=== PATIENT | male | born 1965 | race Caucasian/White ===

== ENCOUNTER 2017-07-30 17:59 | Inpatient (IN) | payer MEDICARE, MEDICAID ==
[2017-07-30 19:10] LABS: Hematocrit 47.1 % (42.0-52.0); Mean Platelet Volume 7.9 fL (7.4-10.4); Red Blood Cell (RBC) Count 4.58 mill/uL (4.70-6.10); White Blood Cell (WBC) Count 19.8 thou/uL (4.8-10.8)
[2017-07-30 19:25] LABS: Band 1 % (5-11); Macrocytosis SLIGHT = 6-15 cells (100X) (0-5/hpf); Neutrophil 44 % (42-75); Reactive Lymphocytes 3 % (0-10)
[2017-07-30 19:27] LABS: ALT (SGPT) 124 U/L (8-55); AST (SGOT) 249 U/L (5-34); Alkaline Phosphatase 107 U/L (40-150); Anion Gap 13 mmol/L (10-20); BUN (Urea Nitrogen) 13 mg/dL (8.4-25.7); Bilirubin, Total 1.1 mg/dL (0.2-1.2); Calc. Creatinine Clearance 0 mL/min (70-130); Calcium 9.5 mg/dL (7.8-10.44); Carbon Dioxide 23 mmol/L (22-29); Chloride 98 mmol/L (98-107); Estimated GFR-MDRD 73; Globulin 3.6 g/dL (2.4-3.5); Protein, Total 7.5 g/dL (6.0-8.3)
[2017-07-30 19:32] LABS: Lactic Acid - Sepsis 2.4 mmol/L (0.5-2.2)
[2017-07-30 19:32] LABS: Troponin I Less than 0.010 ng/mL (< 0.028)
[2017-07-30 19:48] LABS: Bilirubin Small (Negative); Blood, Urine Large (Negative); Glucose, Urine (Dipstick) Negative (Negative); Ketone, Urine Trace mg/dL (Negative); Nitrite Negative (Negative); Protein, Urine (Dipstick) 100 mg/dL (Neg-Trace)
[2017-07-30 19:52] LABS: Bacteria/HPF None Seen HPF (None Seen); RBC/HPF 0-3 HPF (0-3); Squamous Epithelial 0-3 HPF (0-3)
[2017-07-30 20:05] LABS: Yeast-All Forms None Seen HPF (None Seen)
[2017-07-30] MEDS ORDERED: Vancomycin HCl 1.75 GM in Sodium Chloride 0.9% 500 ML IVPB SCH (20:30)
--- NOTE | 2017-07-30 21:40 | CT ---
ABDOMEN CT WITHOUT CONTRAST: PELVIS CT WITHOUT CONTRAST: HISTORY: Urinary retention. The patient has not urinated all day. The patient has had over 2 L of fluid. Ba ck pain. The patient has only one kidney. The patient has epilepsy. COMPARISON: None. TECHNIQUE: An abdomen and pelvis CT is performed without contrast. Coronal reformatted images are submitted for interpretation. FINDINGS: ABDOMEN: Small right-sided and left-sided pleural effusion. Adjacent atelectasis is noted. Heart s ize is within normal limits. No significant pericardial fluid. The visualized aorta has a normal ca liber. No periaortic fat stranding. Symmetric attenuation of the psoas muscles. Multiple surgical clips in the right upper quadrant. The gallbladder appears to be surgically absent . Limited evaluation of the solid organs due to lack of IV contrast. The left hepatic lobe is somewhat prominent. Discrete hepatic masses are not appreciated. Calcifications project over the right hepa tic lobe. The spleen appears to be surgically absent. There appears to be splenule in the left upper quadrant, measuring approximately 2 cm. 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 The right adrenal gland is unremarkable. Atrophy of the proximal body and head of the pancreas. No inflammation. No mesenteric mass, lymphadenopathy, free air, or free fluid. Limited evaluation of the alimentary canal due to lack of oral contrast. No evidence of bowel obstru ction. The right kidney is absent. With regard to the left kidney, there is no evidence of hydronephrosis o r perinephric fat stranding. Punctate nonobstructing calculus in the left renal pelvis. The left ur eter has a normal caliber. No hydroureter, periureteral fat stranding, or ureterolithiasis. PELVIS: A Mohan catheter decompresses the urinary bladder. No pelvic mass, lymphadenopathy, free ai r, or free fluid. There is an anastomotic suture chain at the level of the rectum. There are no osteoblastic or osteolytic lesions. IMPRESSION: 1. No evidence or urinary obstruction. 2. Additional post surgical changes as detailed above. POS: [facility]
--- NOTE | 2017-07-30 21:47 | RAD ---
ONE VIEW CHEST: HISTORY: Pain. COMPARISON: None. FINDINGS: Normal cardiac silhouette. The lungs and pleural spaces are clear. No pneumothorax. No osseous abn ormalities. Left-sided vagal stimulator is identified. IMPRESSION: No acute cardiopulmonary process. POS: [facility]
--- NOTE | 2017-07-30 22:00 | CT ---
NONCONTRAST HEAD CT: HISTORY: Altered mental status. COMPARISON: None. TECHNIQUE: A noncontrast head CT is performed from the skull base to the skull vertex. FINDINGS: No parenchymal hemorrhage. No extraaxial hematoma. No midline shift. The basilar cisterns are kelly nt. Cortical lawson white matter differentiation is preserved. The ventricles and sulci are patent an d symmetric. Hypodensities in the left and right frontal deep and subcortical white matter, due to chronic small v essel ischemic change or remote white matter insult, are suspected. Of note, there is slightly great er atrophy of the frontal lobes when compared to the remainder of the cerebrum. Minimal opacification of the left sphenoid sinus. Adequate aeration of the mastoid air cells. The c alvarium is intact. IMPRESSION: 1. Asymmetric increased atrophy of the left and right frontal lobe. Remote white matter insult in b oth frontal lobes. 2. No acute intracranial process. POS: [facility]
--- NOTE | 2017-07-30 22:04 | PDOC.EVN ---
Event Note - Event Note Event Note: [id number] H&P Dictated 1. Schizophrenia 2. Altered mental status 3. Seizures 4. HTN plan; see orders
[2017-07-30] MEDS ORDERED: Acetaminophen 325 MG TAB PO PRN ×2 (22:05→23:34)
[2017-07-30] MEDS ORDERED: HYDROcodone/Acetaminophen 5/325 mg Tablet PO PRN ×2 (22:05→23:36)
[2017-07-30] MEDS ORDERED: Ondansetron HCl/PF 4 MG/2 ML Vial IVP PRN (22:05)
[2017-07-30 22:55] LABS: Troponin I Less than 0.010 ng/mL (< 0.028)
[2017-07-31 01:09] VITALS: BMI 34.2
[2017-07-31 01:42] LABS: Troponin I 0.012 ng/mL (< 0.028)
[2017-07-31] MEDS: Sodium Chloride 0.9% 1,000 ML IV SCH ×4 (02:03→23:25)
--- NOTE | 2017-07-31 04:42 | HP ---
DATE OF ADMISSION: 07/30/2017 CHIEF COMPLAINT: Fever, fatigue, and confusion. HISTORY OF PRESENT ILLNESS: Patient is a 51-year-old male with past medical history of seizures, dep ression, anxiety, schizophrenia, hypertension. He currently lives in a fdc. Patient was brou ght from the fdc because of fever, fatigue, confusion, and decreased urine output since this m orning. According to the caregiver, the patient was slightly confused since this morning and is havi ng some fever and patient did not have any urine output since this morning, so patient was brought to the ER. The patient complains of generalized body aches. Denies any cough, denies sputum productio n, denies any chest pain, denies any palpations, denies any dizziness. He complains of feeling tired . PAST MEDICAL HISTORY: As per HPI. PAST SURGICAL HISTORY: Splenectomy and nephrectomy. SOCIAL HISTORY: Denies smoking, denies alcohol, denies any drugs. ALLERGIES: Reviewed. FAMILY HISTORY: Patient lives in a fdc, has foster parents. REVIEW OF SYSTEMS: Constitutional: Positive for fever, positive for fatigue. Eyes: Denies any vis ion problems. Neck: Denies any neck pain. Cardiovascular: Denies any chest pain. Respiratory sys tem: Denies any cough, denies sputum production. Gastrointestinal: Denies abdominal pain. Genitou rinary: Decreased urine output. Patient had some urine output after Mohan placement in the ER. Mus culoskeletal: Denies any joint deformities. Cranial nerve system: Denies syncope, history of seizu res. Psychiatric: Positive for confusion. All other review of systems are reviewed and are negativ e. PHYSICAL EXAMINATION: VITAL SIGNS: At the time of H and P performed, blood pressure is 114/67, pulse ox 94%, heart rate 90 . GENERAL: The patient appears comfortable. HEENT: Pupils equal, round. Anterior naris patent. Nose normal. Ears normal. Teeth intact. Tong ue is moist. NECK: Supple, no JVD. CARDIOVASCULAR SYSTEM: S1, S2 present. Regular rate and rhythm. RESPIRATORY SYSTEM: There are no murmurs, no rubs, no gallops. GASTROINTESTINAL: Positive for mild tender to palpate. No guarding, no rebound tenderness. MUSCULOSKELETAL: Trace edema present. CRANIAL NERVOUS SYSTEM: Awake, follows commands. Speech clear. PSYCHIATRIC: Mood calm at this time. LABORATORY DATA: At the time of H and P performed, UA positive for protein, 7-10 wbc's, 4-6 granular cast. BMP showed sodium 130, potassium 3.6, chloride 98, CO2 23, BUN of 13, creatinine 1.06. Lacti c acid 2.4, CK-MB 122. White count 19.8, hemoglobin 15.6, platelet count is 223. ASSESSMENT AND PLAN: The patient is a 51 years old male: 1. Sepsis secondary to urinary tract infection. The patient has some lactic acidosis, tachypnea, an d also urine is positive, so we will go ahead and start patient on intravenous antibiotics. We will admit patient to the hospital and monitor patient closely. 2. History of seizures. Continue antiepileptics, seizure precautions. 3. Altered mental status, probably secondary to urinary tract infection. Mental status is improving , monitor, repeat labs in the morning. 4. Abnormal liver function tests. We will go ahead and consult gastroenterology to evaluate the pat ient. We will check ultrasound also. 5. History of hypertension. Continue blood pressure medications. 6. History of schizophrenia and depression. Monitor closely. The case was discussed in detail with the patient.
[2017-07-31] MEDS: MEROPENEM 1 GM/50 ML 1 GM in Premix Bag 1 BAG IVPB SCH ×2 (06:30→15:55)
[2017-07-31 06:33] LABS: ALT (SGPT) 112 U/L (8-55); AST (SGOT) 210 U/L (5-34); Alkaline Phosphatase 84 U/L (40-150); Anion Gap 11 mmol/L (10-20); BUN (Urea Nitrogen) 10 mg/dL (8.4-25.7); Bilirubin, Total 0.9 mg/dL (0.2-1.2); Calc. Creatinine Clearance 155 mL/min (70-130); Calcium 8.6 mg/dL (7.8-10.44); Carbon Dioxide 21 mmol/L (22-29); Chloride 105 mmol/L (98-107); Estimated GFR-MDRD Greater than 90; Globulin 2.9 g/dL (2.4-3.5)
[2017-07-31 08:02] LABS: Hematocrit 46.4 % (42.0-52.0); Mean Platelet Volume 9.2 fL (7.4-10.4); Neutrophil 59 % (42-75); White Blood Cell (WBC) Count 16.8 thou/uL (4.8-10.8)
[2017-07-31] MEDS: Heparin 5,000 UNITS/ML VIAL SC SCH ×3 (10:02→21:34)
--- NOTE | 2017-07-31 11:52 | PDOC.PN ---
- Subjective Encounter Start Date: 07/31/17 Encounter Start Time: 11:51 Mr. Dan was seen today in follow-up of sepsis suspected to be due to UTI. He is drowsy and tell me with his eyes closed that he is " still sleepy" He denies having any complaints such as abdominal pain or chest pain ect. - Objective MAR Reviewed: Yes Vital Signs & Weight: Vital Signs (12 hours) Temp Pulse Resp BP Pulse Ox 07/31/17 09:45 99.0 F 92 14 91 L 07/31/17 08:15 99.0 F 92 14 121/67 91 L 07/31/17 04:00 99.1 F 86 18 114/64 96 07/31/17 00:20 100.2 F H 85 16 96 07/31/17 00:10 100.2 F H 85 16 101/63 96 Weight Weight 238 lb 3.2 oz I&O: 07/30/17 07/31/17 08/01/17 06:59 06:59 06:59 Intake Total 962 Output Total 1250 Balance -288 Result Diagrams: 07/31/17 06:57 07/31/17 04:59 Phys Exam - Physical Examination HEENT: PERRLA Respiratory: no wheezing, no rales, no rhonchi, clear to auscultation bilateral Cardiovascular: RRR, no significant murmur Gastrointestinal: soft, non-tender, positive bowel sounds Musculoskeletal: no edema Dx/Plan (1) Sepsis Code(s): A41.9 - SEPSIS, UNSPECIFIED ORGANISM Status: Acute (2) UTI (urinary tract infection) Status: Acute (3) Hypertension Code(s): I10 - ESSENTIAL (PRIMARY) HYPERTENSION Status: Acute (4) Depression Code(s): F32.9 - MAJOR DEPRESSIVE DISORDER, SINGLE EPISODE, UNSPECIFIED Status : Acute (5) Schizophrenia Code(s): F20.9 - SCHIZOPHRENIA, UNSPECIFIED Status: Acute (6) Hypothyroidism Code(s): E03.9 - HYPOTHYROIDISM, UNSPECIFIED Status: Acute - Plan * Sepsis- he appears to be slightly improved- will continue Vancomycin and Meropenem pending culture results * HTN- blood pressure is stable- will re-start his home blood pressure medications in a stepwise manner * Schizophrenia- will re-start his home medications * Hypothyroidism- he is clinically euthyroid- resume Levothyroxine * Ambulate with assistance * Continue to monitor CBC, and BMP
[2017-07-31] MEDS ORDERED: Rizatriptan Benzoate 10 MG MLT TAB PO PRN (11:55)
[2017-07-31] MEDS: risperiDONE 1 MG TAB PO SCH ×2 (15:55→21:33)
--- NOTE | 2017-07-31 21:28 | CON ---
DATE OF CONSULTATION: 07/31/2017 GI INPATIENT CONSULTATION NOTE REASON FOR CONSULTATION: Elevated LFTs. HISTORY OF PRESENT ILLNESS: Sy is a 51-year-old man, who was admitted to the hospital yesterda y from his senior care with fever, fatigue, decreased urine output, and altered mental status. Note t hat, the patient is in the [facility] under a different name, first name Sheldon Dan with th e same date of , but it appears this is the same patient. The patient sees my GI colleague, Dr. Antwan Klein for followup of his cirrhosis. Cirrhosis was diagnosed by prior liver biopsy and was see n to be stage IV; however, the patient has been very well compensated. In 2014, he underwent 24 week s of treatment with Harvoni and achieved sustained virologic response, so his HCV is cured. Note shayla t on lab monitoring, the patient's LFTs were normal last month. Upon presentation here, the patient was found to have a low-grade fever and also urinary tract infect ion. He is being treated with vancomycin and meropenem. He is hemodynamically stable and afebrile f or most of today, his LFTs were found to be elevated on presentation with AST 249, ALT 124, otherwise normal alkaline phosphatase and bilirubin. Today LFTs trended down slightly to AST 210, ALT 112, la ctic acid was initially 2.4 and is now 1.1. The patient does not have any jaundice. He is really no t complaining of any abdominal pain, nausea, or vomiting. He had a CT scan, which demonstrated no ev idence of ascites, no acute processes. REVIEW OF SYSTEMS: Full review of systems including constitutional, head, eyes, ears, nose, throat, GI, , cardiovascular, respiratory, musculoskeletal, and neurologic systems is negative except as no lalitha in the HPI. ALLERGIES: ACETAMINOPHEN, ASPIRIN, AZITHROMYCIN, BISMUTH, COFFEE, IBUPROFEN, MILK, NAPROXEN, NSAIDS, PHENYTOIN, RED DYE. OUTPATIENT MEDICATIONS: Risperidone, Keppra, Flomax, spironolactone 25 mg daily, sertraline 50 mg da jesusita, Maxalt p.r.n., Seroquel, melatonin, lisinopril 10 mg daily, levothyroxine 125 mcg daily, Aricept , bethanechol, benztropine, and amlodipine. INPATIENT MEDICATIONS: IV meropenem, IV vancomycin. FAMILY HISTORY: Unknown. SOCIAL HISTORY: No smoking, alcohol, or drug use. PHYSICAL EXAMINATION: VITAL SIGNS: Temperature initially 100.2, now down to 98.6, pulse 89, blood pressure 136/60, 92% oxy gen saturation on room air. GENERAL: A 51-year-old man sitting up in bed comfortably, in no acute distress. SKIN: No jaundice, no rashes were palpable. EYES: No scleral icterus. Extraocular movements intact. ENT: Mucous membranes moist, no oral lesions. LYMPH: No submandibular, supraclavicular lymphadenopathy. THYROID: Nontender to palpation. HEART: Regular rate and rhythm. LUNGS: Clear to auscultation bilaterally. ABDOMEN: Nondistended. Bowel sounds present. Soft and nontender to palpation throughout. EXTREMITIES: No peripheral edema. VESSELS: Radial pulses 2+ bilaterally. NEUROLOGIC: No asterixis. LABORATORY STUDIES: WBC down to 16.8, hemoglobin 15.3, platelets 146, MCV 103. BUN 10, creatinine 0 .84. Sodium 133, potassium 4.4, total bilirubin 0.9, alkaline phosphatase 84, AST 210, ALT 112, albu min 3.1. Lactic acid initially 2.4, now down to 1.1. Urinalysis shows 7-10 wbc's. IMAGING STUDIES: CT head showed no acute processes. Chest x-ray showed no acute processes. He has a vagus nerve stimulator in place. CT of the abdomen and pelvis demonstrated absent gallbladder, abs ent spleen. He does have a splenule. He has a large left adrenal adenoma. There is some prominence of the left hepatic lobe, no acute processes. ASSESSMENT AND PLAN: 1. Elevated liver function tests. 2. History of cirrhosis, appears well compensated. 3. History of hepatitis C, status post successful treatment with Harvoni in 2015. Note the patient' s liver function tests were normal as recently as last month. I would suspect that his current liver function tests elevation is likely reactive from his low-grade sepsis on presentation. Continue wit h current treatment. I see no evidence of liver dysfunction. I will add some labs to his morning la bs just to round out the evaluation. We will check INR as the best marker of true liver function. W e will get acute viral hepatitis serologies. I do not see any for further imaging. He is post-qiana cystectomy, not having any abdominal pain, so low concern for any new biliary issue. After discharge, he can follow up in the GI clinic with Dr. Klein.
[2017-07-31] MEDS: Benztropine 1 MG TAB PO PRN (21:33)
[2017-07-31] MEDS: levETIRAcetam 500 MG TAB PO SCH (21:33)
[2017-07-31] MEDS: Donepezil HCl 10 MG TAB PO SCH (21:34)
[2017-07-31] MEDS: Tamsulosin HCl 0.4 MG CAP PO SCH (21:36)
[2017-08-01] MEDS: MEROPENEM 1 GM/50 ML 1 GM in Premix Bag 1 BAG IVPB SCH ×4 (00:10→21:49)
[2017-08-01 06:07] LABS: Prothrombin Time 14.2 SEC (12.0-14.7)
[2017-08-01 06:20] LABS: Anion Gap 7 mmol/L (10-20); BUN (Urea Nitrogen) 9 mg/dL (8.4-25.7); Calc. Creatinine Clearance 170 mL/min (70-130); Calcium 8.5 mg/dL (7.8-10.44); Carbon Dioxide 28 mmol/L (22-29); Chloride 104 mmol/L (98-107); Estimated GFR-MDRD Greater than 90
[2017-08-01 06:22] LABS: ALT (SGPT) 81 U/L (8-55); AST (SGOT) 108 U/L (5-34); Alkaline Phosphatase 66 U/L (40-150); Bilirubin, Direct 0.2 mg/dL (0.1-0.3); Bilirubin, Total 0.4 mg/dL (0.2-1.2); Protein, Total 5.7 g/dL (6.0-8.3)
[2017-08-01 06:49] LABS: Hematocrit 39.3 % (42.0-52.0); Mean Platelet Volume 8.5 fL (7.4-10.4); Neutrophil 42 % (42-75); Reactive Lymphocytes 2 % (0-10); Red Blood Cell (RBC) Count 3.72 mill/uL (4.70-6.10); White Blood Cell (WBC) Count 15.5 thou/uL (4.8-10.8)
[2017-08-01] MEDS: Sodium Chloride 0.9% 1,000 ML IV SCH (08:40)
[2017-08-01] MEDS: Levothyroxine Sodium 125 MCG TAB PO SCH (08:40)
[2017-08-01] MEDS: levETIRAcetam 500 MG TAB PO SCH ×2 (08:40→21:32)
[2017-08-01] MEDS: risperiDONE 1 MG TAB PO SCH ×3 (08:41→21:33)
[2017-08-01] MEDS: Amlodipine 10 MG TAB PO SCH (08:41)
[2017-08-01] MEDS: Heparin 5,000 UNITS/ML VIAL SC SCH ×3 (08:41→21:33)
--- NOTE | 2017-08-01 09:00 | PDOC.PN ---
- Subjective Encounter Start Date: 08/01/17 Encounter Start Time: 08:59 Mr. Dan was seen today in follow-up regarding UTI with sepsis. He is sitting up in bed. He complains of some pain in both feet, and back but otherwise ok. - Objective MAR Reviewed: Yes Vital Signs & Weight: Vital Signs (12 hours) Temp Pulse Resp BP Pulse Ox 08/01/17 08:41 77 08/01/17 07:36 97.6 F 77 18 124/58 L 90 L 08/01/17 03:00 98.4 F 84 28 H 120/50 L 90 L 08/01/17 00:00 91 18 112/63 95 Weight Weight 238 lb 3.2 oz I&O: 07/31/17 08/01/17 08/02/17 06:59 06:59 06:59 Intake Total 962 2417 Output Total 1250 5050 Balance -592 -8985 Result Diagrams: 08/01/17 04:56 08/01/17 04:56 Phys Exam - Physical Examination HEENT: PERRLA Respiratory: no wheezing, no rales, no rhonchi, clear to auscultation bilateral Cardiovascular: RRR, no significant murmur Gastrointestinal: soft, non-tender, positive bowel sounds Musculoskeletal: no edema + mild erythema of the dorsum of both feet, and some excoriations mild eruthema in the sacral area, but no induration warth, skin breaks ect. Dx/Plan (1) Sepsis Code(s): A41.9 - SEPSIS, UNSPECIFIED ORGANISM Status: Acute (2) UTI (urinary tract infection) Status: Acute (3) Hypertension Code(s): I10 - ESSENTIAL (PRIMARY) HYPERTENSION Status: Acute (4) Depression Code(s): F32.9 - MAJOR DEPRESSIVE DISORDER, SINGLE EPISODE, UNSPECIFIED Status : Acute (5) Schizophrenia Code(s): F20.9 - SCHIZOPHRENIA, UNSPECIFIED Status: Acute (6) Hypothyroidism Code(s): E03.9 - HYPOTHYROIDISM, UNSPECIFIED Status: Acute - Plan * Sepsis - likely from a urine source. Patient's culture however is non- revealing * Will continue the current antibiotics until his WBC count returns to normal, then can switch to an oral agent * GI input appreciated - elevated LFT's are likely from sepsis * HTN- his blood pressure is recovering, will continue to monitor, and re-start his antihypertensives as indicated * Schizophrenia- stable- his psychiatric medications have been re-instituted .
[2017-08-01] MEDS: Benztropine 1 MG TAB PO PRN (21:32)
[2017-08-01] MEDS: Tamsulosin HCl 0.4 MG CAP PO SCH (21:33)
[2017-08-01] MEDS: Donepezil HCl 10 MG TAB PO SCH (21:33)
[2017-08-02 06:40] LABS: Band 1 % (5-11); Hematocrit 39.9 % (42.0-52.0); Mean Platelet Volume 8.3 fL (7.4-10.4); Neutrophil 29 % (42-75); Red Blood Cell (RBC) Count 3.77 mill/uL (4.70-6.10); White Blood Cell (WBC) Count 12.9 thou/uL (4.8-10.8)
[2017-08-02] MEDS: MEROPENEM 1 GM/50 ML 1 GM in Premix Bag 1 BAG IVPB SCH ×3 (07:07→23:17)
[2017-08-02] MEDS: Sodium Chloride 0.9% 1,000 ML IV SCH ×2 (07:07→23:16)
--- NOTE | 2017-08-02 09:54 | PDOC.PN ---
- Subjective Encounter Start Date: 08/02/17 Encounter Start Time: 09:52 Mr. Dan was seen today in follow-up of sepsis from suspected Urine source. He again is a bit drowsy. He complains of some soreness of the left side of his neck. - Objective MAR Reviewed: Yes Vital Signs & Weight: Vital Signs (12 hours) Temp Pulse Resp BP Pulse Ox 08/02/17 07:50 99.1 F 72 18 125/62 92 L 08/02/17 03:40 100.3 F H 62 19 104/58 L 92 L Weight Weight 238 lb 3.2 oz I&O: 08/01/17 08/02/17 08/03/17 06:59 06:59 06:59 Intake Total 7384 5466 Output Total 5272 5957 Balance -3498 -4824 Result Diagrams: 08/02/17 05:17 08/01/17 04:56 Additional Labs: Accuchecks 08/01/17 20:26 POC Glucose 131 H Phys Exam - Physical Examination HEENT: PERRLA Respiratory: no wheezing, no rales, no rhonchi, clear to auscultation bilateral Cardiovascular: RRR, no significant murmur Gastrointestinal: soft, non-tender, positive bowel sounds Musculoskeletal: no edema Dx/Plan (1) Sepsis Code(s): A41.9 - SEPSIS, UNSPECIFIED ORGANISM Status: Acute (2) UTI (urinary tract infection) Status: Acute (3) Hypertension Code(s): I10 - ESSENTIAL (PRIMARY) HYPERTENSION Status: Acute (4) Depression Code(s): F32.9 - MAJOR DEPRESSIVE DISORDER, SINGLE EPISODE, UNSPECIFIED Status : Acute (5) Schizophrenia Code(s): F20.9 - SCHIZOPHRENIA, UNSPECIFIED Status: Acute (6) Hypothyroidism Code(s): E03.9 - HYPOTHYROIDISM, UNSPECIFIED Status: Acute - Plan * Sepsis- syndrome- cultures have been negative, and therefore unrevealing.- Will continue the current antibiotics until is WBC count is normal * Consider switch to an oral agent following the above * Seizure disorder- he has not had any seizures this admission- continue Keppra * HTN- blood pressure is low, continue to monitor, and re-start remaining Home medications as indicated * Schizophrenia- stable * He can be moved off telemetry
[2017-08-02] MEDS: Heparin 5,000 UNITS/ML VIAL SC SCH ×3 (10:03→23:16)
[2017-08-02] MEDS: Levothyroxine Sodium 125 MCG TAB PO SCH (10:03)
[2017-08-02] MEDS: Amlodipine 10 MG TAB PO SCH (10:04)
[2017-08-02] MEDS: levETIRAcetam 500 MG TAB PO SCH ×2 (10:04→23:15)
[2017-08-02] MEDS: risperiDONE 1 MG TAB PO SCH ×3 (10:04→23:16)
[2017-08-02] MEDS: traMADol HCl 50 MG TAB PO PRN ×2 (16:04→23:15)
[2017-08-02] MEDS: Donepezil HCl 10 MG TAB PO SCH (23:16)
[2017-08-02] MEDS: Tamsulosin HCl 0.4 MG CAP PO SCH (23:16)
[2017-08-03] MEDS: Sodium Chloride 0.9% 1,000 ML IV SCH ×4 (00:41→22:46)
[2017-08-03 06:14] LABS: Hematocrit 40.6 % (42.0-52.0); Neutrophil 40 % (42-75); Red Blood Cell (RBC) Count 3.85 mill/uL (4.70-6.10)
[2017-08-03] MEDS: MEROPENEM 1 GM/50 ML 1 GM in Premix Bag 1 BAG IVPB SCH ×3 (06:23→20:48)
[2017-08-03] MEDS: Levothyroxine Sodium 125 MCG TAB PO SCH (06:23)
[2017-08-03] MEDS: Heparin 5,000 UNITS/ML VIAL SC SCH ×3 (10:16→20:49)
[2017-08-03] MEDS: levETIRAcetam 500 MG TAB PO SCH ×2 (10:16→20:45)
[2017-08-03] MEDS: risperiDONE 1 MG TAB PO SCH ×3 (10:17→20:46)
[2017-08-03] MEDS: Amlodipine 10 MG TAB PO SCH (10:17)
[2017-08-03 13:11] LABS: Hep C PCR-Quant HCV Not Detected IU/mL (.)
--- NOTE | 2017-08-03 14:48 | PDOC.PN ---
- Subjective Encounter Start Date: 08/03/17 Encounter Start Time: 10:00 states he is feeling a little better today. states that he is a bit sleepy at this moment. no acute night events - Objective Vital Signs & Weight: Vital Signs (12 hours) Temp Pulse Resp BP BP Pulse Ox 08/03/17 12:59 97.6 F 74 18 95 08/03/17 12:50 97.6 F 74 18 133/81 95 08/03/17 11:26 97.1 F L 78 22 H 113/64 95 08/03/17 10:17 69 110/62 08/03/17 07:55 98.2 F 69 16 92 L 08/03/17 07:52 98.2 F 69 16 110/62 92 L 08/03/17 04:00 97.8 F 72 18 128/62 93 L Weight Weight 238 lb 3.2 oz I&O: 08/02/17 08/03/17 08/04/17 06:59 06:59 06:59 Intake Total 5466 5916 740 Output Total 7575 7000 1000 Balance -2109 -1084 -260 Result Diagrams: 08/03/17 05:04 08/01/17 04:56 Phys Exam - Physical Examination HEENT: PERRLA, moist MMs, sclera anicteric Neck: no nodes Respiratory: no wheezing, no rales, clear to auscultation bilateral Cardiovascular: RRR, no rub Gastrointestinal: soft, non-tender, no distention, positive bowel sounds Musculoskeletal: pulses present, edema present Neurological: moves all 4 limbs Psychiatric: normal affect, A&O x 3 Dx/Plan (1) Depression Code(s): F32.9 - MAJOR DEPRESSIVE DISORDER, SINGLE EPISODE, UNSPECIFIED Status : Acute (2) Hypertension Code(s): I10 - ESSENTIAL (PRIMARY) HYPERTENSION Status: Acute (3) Hypothyroidism Code(s): E03.9 - HYPOTHYROIDISM, UNSPECIFIED Status: Acute (4) UTI (urinary tract infection) Status: Acute (5) Hepatitis C Code(s): B19.20 - UNSPECIFIED VIRAL HEPATITIS C WITHOUT HEPATIC COMA Status: Chronic (6) Seizure disorder Code(s): G40.909 - EPILEPSY, UNSP, NOT INTRACTABLE, WITHOUT STATUS EPILEPTICUS Status: Chronic - Plan cont current plan of care, continue antibiotics, social problems specialist * . continue current plan dc gregory to do voiding trial SW on board to help with DC planning as aparently, he needs skilled nursing facility to live in due to his current living situation not being optimal
[2017-08-03] MEDS: traMADol HCl 50 MG TAB PO PRN (20:43)
[2017-08-03] MEDS: Donepezil HCl 10 MG TAB PO SCH (20:44)
[2017-08-03] MEDS: Tamsulosin HCl 0.4 MG CAP PO SCH (20:46)
[2017-08-04] MEDS: MEROPENEM 1 GM/50 ML 1 GM in Premix Bag 1 BAG IVPB SCH ×3 (05:25→21:12)
[2017-08-04] MEDS: Levothyroxine Sodium 125 MCG TAB PO SCH (05:25)
[2017-08-04 06:58] LABS: Hematocrit 41.6 % (42.0-52.0); Mean Platelet Volume 8.5 fL (7.4-10.4); Neutrophil 37 % (42-75); Red Blood Cell (RBC) Count 3.93 mill/uL (4.70-6.10); White Blood Cell (WBC) Count 12.8 thou/uL (4.8-10.8)
[2017-08-04] MEDS: levETIRAcetam 500 MG TAB PO SCH ×2 (08:43→20:13)
[2017-08-04] MEDS: risperiDONE 1 MG TAB PO SCH ×3 (08:44→20:17)
[2017-08-04] MEDS: Heparin 5,000 UNITS/ML VIAL SC SCH ×3 (08:44→20:14)
[2017-08-04] MEDS: Amlodipine 10 MG TAB PO SCH (08:45)
--- NOTE | 2017-08-04 10:42 | PDOC.PN ---
- Subjective Encounter Start Date: 08/04/17 Encounter Start Time: 09:30 states he feels fine only complaint is just being hungry no acute night events - Objective Vital Signs & Weight: Vital Signs (12 hours) Temp Pulse Resp BP BP Pulse Ox 08/04/17 08:45 64 107/68 08/04/17 08:33 98.5 F 64 18 107/68 95 08/04/17 08:00 98.5 F 64 18 08/04/17 00:00 97.7 F 76 20 123/75 95 Weight Weight 238 lb 3.2 oz I&O: 08/03/17 08/04/17 08/05/17 06:59 06:59 06:59 Intake Total 5916 2480 240 Output Total 7000 1100 800 Balance -1084 1380 -560 Result Diagrams: 08/04/17 04:18 08/01/17 04:56 Phys Exam - Physical Examination Constitutional: NAD HEENT: PERRLA Neck: no JVD, supple Respiratory: no wheezing, clear to auscultation bilateral Cardiovascular: RRR Gastrointestinal: soft, non-tender, no distention Musculoskeletal: pulses present Neurological: non-focal Psychiatric: normal affect, A&O x 3 Skin: normal turgor, cap refill <2 seconds Dx/Plan (1) Depression Code(s): F32.9 - MAJOR DEPRESSIVE DISORDER, SINGLE EPISODE, UNSPECIFIED Status : Acute (2) Hypertension Code(s): I10 - ESSENTIAL (PRIMARY) HYPERTENSION Status: Acute (3) Hypothyroidism Code(s): E03.9 - HYPOTHYROIDISM, UNSPECIFIED Status: Acute (4) UTI (urinary tract infection) Status: Acute (5) Hepatitis C Code(s): B19.20 - UNSPECIFIED VIRAL HEPATITIS C WITHOUT HEPATIC COMA Status: Chronic (6) Seizure disorder Code(s): G40.909 - EPILEPSY, UNSP, NOT INTRACTABLE, WITHOUT STATUS EPILEPTICUS Status: Chronic - Plan cont current plan of care, plan discussed w/ family, continue antibiotics * . SW consulted for placement as family state [place] [facility] for him DC'ed IVF. increased kcal for diet medically rady for DC once placement is arranged
[2017-08-04] MEDS: Tamsulosin HCl 0.4 MG CAP PO SCH (20:14)
[2017-08-04] MEDS: Donepezil HCl 10 MG TAB PO SCH (20:14)
[2017-08-04] MEDS: traMADol HCl 50 MG TAB PO PRN (20:16)
[2017-08-05] MEDS: MEROPENEM 1 GM/50 ML 1 GM in Premix Bag 1 BAG IVPB SCH ×3 (05:29→21:32)
[2017-08-05] MEDS: Levothyroxine Sodium 125 MCG TAB PO SCH (05:29)
[2017-08-05] MEDS: risperiDONE 1 MG TAB PO SCH ×3 (08:30→20:12)
[2017-08-05] MEDS: levETIRAcetam 500 MG TAB PO SCH ×2 (08:31→20:11)
[2017-08-05] MEDS: Amlodipine 10 MG TAB PO SCH (08:31)
[2017-08-05] MEDS: Heparin 5,000 UNITS/ML VIAL SC SCH ×3 (08:32→20:11)
--- NOTE | 2017-08-05 11:02 | PDOC.PN ---
- Subjective Encounter Start Date: 08/05/17 Encounter Start Time: 10:59 Subjective: slow - Objective MAR Reviewed: Yes Vital Signs & Weight: Vital Signs (12 hours) Temp Pulse Resp BP BP Pulse Ox 08/05/17 08:31 69 117/65 08/05/17 08:00 97.8 F 69 22 H 117/65 94 L 08/05/17 00:00 97.8 F 76 18 115/76 Weight Weight 238 lb 3.2 oz I&O: 08/04/17 08/05/17 08/06/17 06:59 06:59 06:59 Intake Total 2480 4320 Output Total 1100 4510 Balance 1380 -190 Result Diagrams: 08/04/17 04:18 08/01/17 04:56 Additional Labs: Accuchecks 08/05/17 08/04/17 08/04/17 04:46 20:13 16:52 POC Glucose 82 92 90 08/04/17 11:42 POC Glucose 85 Phys Exam - Physical Examination Constitutional: NAD Neck: no JVD Respiratory: clear to auscultation bilateral Cardiovascular: RRR, no significant murmur Gastrointestinal: soft, non-tender, positive bowel sounds Musculoskeletal: no edema Dx/Plan (1) Hypertension Code(s): I10 - ESSENTIAL (PRIMARY) HYPERTENSION Status: Acute Qualifiers: Hypertension type: essential hypertension Qualified Code(s): I10 - Essential (primary) hypertension (2) UTI (urinary tract infection) Status: Ruled-out (3) Compensated cirrhosis related to hepatitis C virus (HCV) Code(s): B19.20 - UNSPECIFIED VIRAL HEPATITIS C WITHOUT HEPATIC COMA; K74.69 - OTHER CIRRHOSIS OF LIVER Status: Chronic (4) Hepatitis C Code(s): B19.20 - UNSPECIFIED VIRAL HEPATITIS C WITHOUT HEPATIC COMA Status: Chronic (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
--- NOTE | 2017-08-05 11:44 | PQF ---
CLINICAL DOCUMENTATION IMPROVEMENT CLARIFICATION FORM: ICD-10 Updated PLEASE DO AN ADDENDUM TO THE PROGRESS NOTE WITH ANY DOCUMENTATION UPDATES OR ADDITIONS AND CARRY THROUGH TO DC SUMMARY. THANK YOU. DATE: 08/05 ATTN: DR. KATHERYN MCDANIEL Please exercise your independent, professional judgment in responding to the clarification form. Clinical indicators are provided on the bottom of this form for your review Please check appropriate box(s) to clarify if the following diagnosis has been ruled in our ruled out: SEPSIS 2/2 UTI [ ] Ruled in diagnosis [ ] Continue to treat [ ] Resolved [ x] Ruled out diagnosis [ ] Other diagnosis [ ] Unable to determine For continuity of documentation, please document condition throughout progress notes and discharge summary. Thank You. CLINICAL INDICATORS - SIGNS / SYMPTOMS / LABS ER PRESENTATION 07/31: EVALUATION FOR URINARY RETENTION AMS WBC: 19.8 LACTIC ACID: 2.4 RR: 20-26 HR: 89-105 PHYSICIAN H&P DOCUMENTATION 07/31: ASSESSMENT/PLAN: 1. SEPSIS 2/2 UTI. THE PATIENT HAS SOME LACTIC ACIDOSIS, TACHYPNEA & URINE IS ALSO POSITIVE PHYSICIAN PN DATED 07/31, 7 & 8: DX/PLAN: 1. SEPSIS, UNSPECIFIED ORGANISM, ACUTE PHYSICIAN PN DATED 08/05: UTI - RULED OUT NO FURTHER DOCUMENTATION OF SEPSIS TO DATE RISK FACTORS: URINARY RETENTION LEUKOCYTOSIS AMS TREATMENTS: TELEMETRY MONITORING IV ANTIBIOTICS (MEROPENEM 07/31 - PRESENT) IVF (NS 07/31 - 10) THANK YOU! Beverly (This form is maintained as a part of the permanent medical record) 2014 [email or web address], [employer] All Rights Reserved Beverly Parikh RN, BSN [email or web address] Office: [phone] [facility]
[2017-08-05] MEDS: Donepezil HCl 10 MG TAB PO SCH (20:11)
[2017-08-05] MEDS: Tamsulosin HCl 0.4 MG CAP PO SCH (20:12)
[2017-08-06] MEDS: MEROPENEM 1 GM/50 ML 1 GM in Premix Bag 1 BAG IVPB SCH ×3 (05:39→22:40)
[2017-08-06] MEDS: Levothyroxine Sodium 125 MCG TAB PO SCH (05:41)
[2017-08-06] MEDS: Amlodipine 10 MG TAB PO SCH (09:01)
[2017-08-06] MEDS: risperiDONE 1 MG TAB PO SCH ×3 (09:02→19:42)
[2017-08-06] MEDS: levETIRAcetam 500 MG TAB PO SCH ×2 (09:02→19:41)
[2017-08-06] MEDS: Heparin 5,000 UNITS/ML VIAL SC SCH ×3 (09:03→19:41)
--- NOTE | 2017-08-06 11:53 | PDOC.PN ---
- Subjective Encounter Start Date: 08/06/17 Encounter Start Time: 11:45 Subjective: no complaints - Objective MAR Reviewed: Yes Vital Signs & Weight: Vital Signs (12 hours) Temp Pulse Resp BP BP Pulse Ox 08/06/17 09:01 71 102/65 08/06/17 08:00 98.2 F 71 20 102/65 92 L 08/06/17 04:00 97.9 F 75 20 114/67 93 L 08/06/17 00:00 97.8 F 80 20 118/70 95 Weight Weight 238 lb 3.2 oz I&O: 08/05/17 08/06/17 08/07/17 06:59 06:59 06:59 Intake Total 4320 5780 Output Total 4510 1400 Balance -190 4380 Result Diagrams: 08/04/17 04:18 08/01/17 04:56 Additional Labs: Accuchecks 08/06/17 08/05/17 08/05/17 04:44 16:41 11:34 POC Glucose 91 82 93 Phys Exam - Physical Examination Constitutional: NAD Neck: no JVD Respiratory: clear to auscultation bilateral Cardiovascular: RRR, no significant murmur Gastrointestinal: soft, non-tender Musculoskeletal: no edema Dx/Plan (1) Hypertension Code(s): I10 - ESSENTIAL (PRIMARY) HYPERTENSION Status: Acute Qualifiers: Hypertension type: essential hypertension Qualified Code(s): I10 - Essential (primary) hypertension (2) UTI (urinary tract infection) Status: Ruled-out (3) 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
[2017-08-06] MEDS: traMADol HCl 50 MG TAB PO PRN (18:31)
[2017-08-06] MEDS: Donepezil HCl 10 MG TAB PO SCH (19:41)
[2017-08-06] MEDS: Tamsulosin HCl 0.4 MG CAP PO SCH (19:42)
[2017-08-06] MEDS ORDERED: Lorazepam 2 MG/ML VIAL SLOW IVP PRN (23:52)
[2017-08-07] MEDS: MEROPENEM 1 GM/50 ML 1 GM in Premix Bag 1 BAG IVPB SCH (05:32)
[2017-08-07] MEDS: Levothyroxine Sodium 125 MCG TAB PO SCH (05:32)
[2017-08-07 08:10] VITALS: BP 124/69
[2017-08-07] MEDS: Heparin 5,000 UNITS/ML VIAL SC SCH (08:11)
[2017-08-07] MEDS: risperiDONE 1 MG TAB PO SCH (08:12)
[2017-08-07] MEDS: levETIRAcetam 500 MG TAB PO SCH (08:12)
[2017-08-07] MEDS: Amlodipine 10 MG TAB PO SCH (08:12)
[2017-08-07 08:34] VITALS: TEMP 98.2
--- NOTE | 2017-08-07 11:49 | DIS ---
DATE OF ADMISSION: 07/30/2017 DATE OF DISCHARGE: 08/07/2017 DISCHARGE DISPOSITION: Discharge to [facility]. [facility] call admission for [facility]. FINAL DIAGNOSES: Hypertension, cirrhosis secondary to hepatitis C, mental retardation, obstructive s leep apnea, seizure disorder, hyponatremia, lactic acidosis. DISCHARGE MEDICATIONS: Same as his admitting medicines, amlodipine 10 mg a day, benztropine 2 tabs p .o. p.r.n., Onfi 10 mg at bedtime, Aricept 10 mg at bedtime, levothyroxine 125 mg a day, Lisinopril 1 0 mg a day, melatonin 1-2 caps at bedtime, Seroquel 300 mg 2 at bedtime, Maxalt 10 mg q.2 hours p.r.n . for headache, Zoloft 50 mg a day, spironolactone 25 mg a day, Flomax 0.4 mg a day, Keppra 1500 mg t wice a day, Risperdal 2 mg t.i.d. ALLERGIES: ANTIHISTAMINES, ASPIRIN, ZITHROMAX, BISMUTH, CHLORPHENIRAMINE, DEXTROMETHORPHAN, DEPAKOTE , EPHEDRINE, ERYTHROMYCIN, HYDANTOINS, IBUPROFEN, MACROLIDE ANTIBIOTICS, NAPROXEN, DILANTIN, RED DYE, SALICYLATE, E-MYCIN. CODE STATUS: FULL. PENDING AT THE TIME OF DISCHARGE: Nothing. HOSPITAL COURSE: The [facility] fever, fatigue, and confusion. Facial laboratory showed a sodium 130, potas sium 3.6, chloride 98, BUN 13, creatinine 1.06. Lactic acid 2.4. White count 19,800, hemoglobin 15. 6, platelet count 223,000. Admitting diagnosis was sepsis with tachycardia and lactic acidosis, hist ory of seizures, altered mental status, hypertension, and psychiatric problem. His blood and urine c ultures are negative since 07/30/2017. The patient was initially treated with IV antibiotics, consul tation with Dr. Hayden Coppola, Gastroenterology was obtained. No further diagnostic steps were needed f or him since he has compensated hepatitis C, cirrhosis since he had pyuria. It was considered that karina lazaro probably had a urinary tract infection with the UA that was nonrevealing as he has had at this poin t, 8 days of IV antibiotics, no further therapy is considered necessary. No procedures were done. He is being transferred to [facility] for continuing care, will be followed up by the attending physician there. His vital signs are stable. Cardiorespiratory exa m is unremarkable.
--- NOTE | 2017-08-23 13:26 | EKG ---
Test Reason : Blood Pressure : / mmHG Vent. Rate : 097 BPM Atrial Rate : 097 BPM P-R Int : 176 ms QRS Dur : 076 ms QT Int : 346 ms P-R-T Axes : 049 003 044 degrees QTc Int : 439 ms Normal sinus rhythm Normal ECG Confirmed by INDIRA LINDER ([id number]), book or script editor SHARI WILKERSON ([id number]) on 08/23/2017 1:26:16 PM Referred By: Confirmed By:INDIRA LINDER
== END 2017-08-07 13:59 | DRG 864 ==
LOC: ERS 17:59 → 2NO 07-31 00:02 → T4-A 08-03 12:53
PROVIDERS: ADMIT Internal Medicine; ATTEND Internal Medicine
DX: R50.9 Fever, unspecified (principal); E87.1 Hypo-osmolality and hyponatremia; K74.69 Other cirrhosis of liver; F20.9 Schizophrenia, unspecified; I10 Essential (primary) hypertension; G40.909 Epilepsy, unspecified, not intractable, without status epilepticus; F32.9 Major depressive disorder, single episode, unspecified; F41.9 Anxiety disorder, unspecified; G47.33 Obstructive sleep apnea (adult) (pediatric); Z88.6 Allergy status to analgesic agent; Z88.1 Allergy status to other antibiotic agents; Z88.8 Allergy status to other drugs, medicaments and biological substances; Z86.19 Personal history of other infectious and parasitic diseases; F70 Mild intellectual disabilities; E03.9 Hypothyroidism, unspecified
CPT/HCPCS: 36415; 36416; 51702; 70450; 71010; 74176; 80048; 80053; 80074; 80076; 81003; 81015; 82140; 82553; 83605; 83880; 84484; 85025; 85610; 87040; 87086; 87522; 93005; 96361; 96365; 96375; A4216; G8996-GN-CJ; G8997-GN-CI; J0696; J1644; J2060; J2185; J3370; J7050